=== PATIENT | female | born 1940 | race Caucasian/White ===

== ENCOUNTER 2024-09-11 10:08 | Emergency (ER) | payer MEDICARE, SELFPAY ==
[2024-09-11 10:06] VITALS: BP 168/89; PULSE 66; RESP 16; TEMP 36.4; O2SAT 100
--- NOTE | 2024-09-11 10:09 | ED.GENADULT ---
HPI - General Adult General Chief complaint: Recheck/Abnormal Lab/Rx Stated complaint: abnormal labs History of Present Illness HPI narrative: 83-year-old female with history of Alzheimer's dementia, hypertension, high cholesterol on Coumadin present to the emergency department for evaluation for an elevated INR. Patient had her INR checked yesterday it was elevated at 9. Family doctor got the results today and instructed the patient that she needed to be evaluated in the emergency department. Patient denies any active bleeding. Related Data Allergies Allergy/AdvReac Type Severity Reaction Status Date / Time cephradine Allergy Unknown Verified 09/11/24 10:23 indomethacin Allergy Unknown Verified 09/11/24 10:23 Sulfa (Sulfonamide Allergy Unknown Verified 09/11/24 10:23 Antibiotics) Review of Systems Review of Systems: All systems reviewed & are unremarkable except as noted in HPI and below Exam Narrative: APPEARANCE: Well appearing, no pain, no distress, well-nourished. HEAD: normocephalic, atraumatic. EYES: PERRLA/EOMI, conjunctivae clear. NOSE: Normal no drainage EARS:TMS clear with good light reflex. THROAT: Pharynx clear, no exudate. NECK: Supple. No adenopathy, no masses. RESPIRATORY: Airway patent, respirations nonlabored. Clear to auscultation bilaterally, no rales, rhonchi, wheezing. CARDIOVASCULAR: Regular rate and rhythm without murmurs rubs or gallops. ABDOMINAL: Soft, nontender, nondistended, normal bowel sounds MUSCULOSKELETAL: Moves all extremities. Strength/ROM intact, No edema, No calf tenderness. NEURO: Alert. Cranial nerves II through XII intact. Good gait. Good coordination SKIN: Warm, dry. Normal Color PSYCHIATRIC: Normal affect/mood. Course Vital Signs Vital signs: Vital Signs Temperature 97.6 F 09/11/24 10:06 Pulse Rate 66 09/11/24 10:06 Respiratory Rate 16 09/11/24 10:06 Blood Pressure 168/89 H 09/11/24 10:06 Pulse Oximetry 100 09/11/24 10:06 Oxygen Delivery Room Air 09/11/24 10:06 Temperature 97.6 F 09/11/24 10:06 Pulse Rate 68 09/11/24 11:52 Respiratory Rate 16 09/11/24 10:06 Blood Pressure 165/84 H 09/11/24 11:52 Pulse Oximetry 99 09/11/24 11:52 Oxygen Delivery Room Air 09/11/24 10:06 Medical Decision Making MDM Narrative Medical decision making narrative: 83-year-old female presents emergency department for an elevated INR. Patient had an INR of 9 as outpatient and patient's INR was decreased to 5.7 today. Patient was advised to hold her Coumadin today. [facility] was updated on the results of her Coumadin level. All questions concerns were addressed patient was stable at time of discharge. Patient had no active bleeding Differential Diagnosis Differential Diagnosis: Supratherapeutic INR, uncontrolled bleeding Vital Signs Vital Signs: Vital Signs Temperature 97.6 F 09/11/24 10:06 Pulse Rate 66 09/11/24 10:06 Respiratory Rate 16 09/11/24 10:06 Blood Pressure 168/89 H 09/11/24 10:06 Pulse Oximetry 100 09/11/24 10:06 Oxygen Delivery Room Air 09/11/24 10:06 Temperature 97.6 F 09/11/24 10:06 Pulse Rate 68 09/11/24 11:52 Respiratory Rate 16 09/11/24 10:06 Blood Pressure 165/84 H 09/11/24 11:52 Pulse Oximetry 99 09/11/24 11:52 Oxygen Delivery Room Air 09/11/24 10:06 Lab Data Lab results reviewed: Yes I reviewed the patient's lab results. 09/11/24 10:32 09/11/24 10:32 Labs: Lab Results 09/11/24 Range/Units 10:32 WBC 6.5 (4.5-10.0) K/mm3 RBC 4.39 (4.2-5.4) M/mm3 Hgb 13.1 (12.0-15.0) g/dL Hct 40.2 (37.0-47.0) % MCV 91.6 (80-100) fl MCH 29.8 (26-34) pg MCHC 32.6 (32-36) g/dl RDW 14.0 (11.5-14.5) % Plt Count 297 (150-375) k/mm3 MPV 10.3 (7.4-10.4) fl Immature Gran % (Auto) 0.2 (0-0.5) % Neut % (Auto) 56.4 (45.5-73.1) % Lymph % (Auto) 32.0 (18.3-44.2) % Placer % (Auto) 8.5 (2.6-8.5) % Eos % (Auto) 2.3 (0-4.4) % Baso % (Auto) 0.6 (0.2-1.2) % Lymph # (Auto) 2.08 (0.9-3.2) K/mm3 Placer # (Auto) 0.6 (0.1-0.6) K/mm3 Eos # (Auto) 0.2 (0-0.3) K/mm3 Baso # (Auto) 0.0 (0.0-0.1) K/mm3 Abs Immat Gran (auto) 0.01 (0.00-0.031) K/mm3 Absolute Neuts (auto) 3.7 (1.3-6.7) K/mm3 Absolute Nucleated RBC 0.000 (0.0-0.012) K/mm3 Nucleated RBC % 0.0 (0.0-0.2) % PT 51.4 H (11.1-14.7) Seconds INR 5.7 H* APTT 76.2 H (22.3-36.8) Seconds Sodium 139 (137-145) mmol/L Potassium 4.1 (3.4-5.0) mmol/L Chloride 106 (98-107) mmol/L Carbon Dioxide 32 H (22-30) mmol/L Anion Gap 1 L (4-12) mmol/L BUN 11 (7-17) mg/dL Creatinine 0.90 (0.7-1.0) mg/dL Estim Creat Clear Calc 41 ml/min Estimated GFR 60 (59 - ) Glucose 112 H (65-110) mg/dL Calcium 9.4 (8.4-10.2) mg/dL Total Bilirubin 0.6 (0.2-1.3) mg/dL AST 66 H (14-36) U/L ALT 39 H (6-35) U/L Alkaline Phosphatase 103 (38-126) U/L Total Protein 7.0 (6.3-8.2) g/dL Albumin 3.7 (3.5-5.1) g/dL Discharge Plan Discharge Clinical Impression: Elevated INR Patient Disposition: [facility]As[facility] Living Condition: Stable Instructions: Antibiotic Form Additional Instructions: Your INR was elevated at 5.7. Hold your Coumadin today. Patient Language: American Follow-up/Referrals: Edgardo Pinto MD [Primary Care Provider] -
[2024-09-11 10:50] LABS: Basophils Percent Auto 0.6 % (0.2-1.2); Eosinophils Absolute Auto 0.2 K/mm3 (0-0.3); Eosinophils Percent Auto 2.3 % (0-4.4); Hematocrit 40.2 % (37.0-47.0); Hemoglobin 13.1 g/dL (12.0-15.0); Immature Granulocyte Absolute 0.01 K/mm3 (0.00-0.031); Immature Granulocyte Percent A 0.2 % (0-0.5); Lymphocytes Absolute Auto 2.08 K/mm3 (0.9-3.2); Mean Corpuscular HGB Conc 32.6 g/dl (32-36); Mean Corpuscular Hemoglobin 29.8 pg (26-34); Mean Corpuscular Volume 91.6 fl (80-100); Mean Platelet Volume 10.3 fl (7.4-10.4); Monocytes Absolute Auto 0.6 K/mm3 (0.1-0.6); Monocytes Percent Auto 8.5 % (2.6-8.5); Neutrophils Absolute Auto 3.7 K/mm3 (1.3-6.7); Neutrophils Percent Auto 56.4 % (45.5-73.1); Platelet Count Result 297 k/mm3 (150-375); Red Blood Count 4.39 M/mm3 (4.2-5.4); White Blood Count 6.5 K/mm3 (4.5-10.0)
[2024-09-11 10:55] LABS: Alanine Aminotransferase 39 U/L (6-35); Albumin Level 3.7 g/dL (3.5-5.1); Alkaline Phosphatase 103 U/L (38-126); Anion Gap 1 mmol/L (4-12); Aspartate Amino Transferase 66 U/L (14-36); Bilirubin,Total 0.6 mg/dL (0.2-1.3); Blood Urea Nitrogen 11 mg/dL (7-17); Calcium 9.4 mg/dL (8.4-10.2); Carbon Dioxide 32 mmol/L (22-30); Chloride 106 mmol/L (98-107); Estimated CRCL calculation 41 ml/min; Estimated Glomerular Filt Rate 60; Glucose 112 mg/dL (65-110); Potassium 4.1 mmol/L (3.4-5.0); Sodium 139 mmol/L (137-145)
[2024-09-11 10:56] LABS: Prothrombin Time 51.4 Seconds (11.1-14.7)
[2024-09-11 10:57] LABS: Partial Thromboplastin Time 76.2 Seconds (22.3-36.8)
[2024-09-11 11:09] LABS: INR 5.7
[2024-09-11 11:52] VITALS: BP 165/84; PULSE 68; O2SAT 99
== END 2024-09-11 11:54 ==
PROVIDERS: Emergency Provider Emergency Medicine; PCP Family Medicine
DX: R79.1 Abnormal coagulation profile (principal); G30.9 Alzheimer's disease, unspecified; F02.80 Dementia in other diseases classified elsewhere, unspecified severity, without behavioral disturbance, psychotic disturbance, mood disturbance, and anxiety; I10 Essential (primary) hypertension; E78.00 Pure hypercholesterolemia, unspecified; Z79.01 Long term (current) use of anticoagulants
CPT/HCPCS: 36415; 80053; 85025; 85610; 85730; 99283